=== PATIENT | female | born 1990 | race American Indian/Alaskan Native ===

== ENCOUNTER 2023-09-17 17:28 | Inpatient (IN) ==
[2023-09-17 17:59] LABS: Basophils # (auto) 0.04 K/uL (0.00-0.20); Basophils % (auto) 0.6 %; Eosinophils # (auto) 0.18 K/uL (0.00-0.50); Eosinophils % (auto) 2.7 %; Hematocrit (blood only) 36.9 % (37.0-47.0); Hemoglobin 11.9 g/dl (12.0-16.0); Immature Granulocytes # (auto) 0.01 K/uL (0.01-0.20); Immature Granulocytes % (auto) 0.2 %; Lymphocytes # (auto) 2.37 K/uL (1.20-3.40); Lymphocytes % (auto) 35.7 %; Mean Corpuscular Hemoglobin 25.2 pg (25.0-34.0); Mean Corpuscular Hgb Conc 32.2 g/dL (32.0-36.0); Mean Corpuscular Volume 78.2 fL (80.0-100.0); Mean Platelet Volume 8.8 fL (9.4-12.4); Monocytes # (auto) 0.32 K/uL (0.11-0.59); Monocytes % (auto) 4.8 %; Neutrophils # (auto) 3.72 K/uL (1.40-6.50); Platelet Count 329 K/uL (130-400); RDW Coefficient of Variation 12.8 % (11.5-14.5); RDW Standard Deviation 36.1 fL (36.4-46.3); Red Blood Count 4.72 M/uL (4.20-5.40); White Blood Count 6.64 K/ul (4.8-10.8)
[2023-09-17 18:03] LABS: Appearance Urine Cloudy (Clear); Bacteria Urine Automated 2+ (Negative); Bilirubin Urine Negative (Negative); Blood Urine Negative (Negative); Color Urine Yellow; Epithelial Cell Urine Auto >30 /lpf (0-5); Glucose Urine UA Negative (Negative); Ketones Urine Negative (Negative); Leukocyte Esterase Urine 3+ (Negative); Nitrite Urine Negative (Negative); Protein Urine Negative (Negative); Specific Gravity Urine 1.008 (1.000-1.030); Urobilinogen Urine Negative (Negative); WBC Urine Automated >30 /hpf (0-5); pH Urine 6.5 (4.5-7.5)
[2023-09-17 18:16] LABS: Albumin Globulin Ratio 1.6 (0.9-2); Albumin Level 4.7 gm/dl (3.4-5.0); BUN Creatinine Ratio 26.1 (10-20); Calcium 9.4 mg/dl (8.6-10.3); Creatinine Clr Calc Pharmacy 73.1 ml/min; Est GFR (African American) 101.5 ml/min; Est GFR (Non-African American) 87.6 ml/min; Globulin 2.9 gm/dl (2.5-4.0); Potassium 3.9 mmol/L (3.5-5.1); Total Protein 7.6 gm/dl (6.0-8.3)
[2023-09-17] MEDS: SODIUM CHLORIDE 0.9% 1,000 ML IV ONE (18:25)
[2023-09-17] MEDS: OPTIRAY 320 500ml IV ONE (18:53)
[2023-09-17 19:20] LABS: Pregnancy Test, Serum Negative (Negative)
--- NOTE | 2023-09-17 19:33 | CT Scan Report ---
ABDOMEN AND PELVIS CT WITH IV CONTRAST CT DOSE: 603.74 mGy.cm HISTORY: Acute left lower quadrant abdominal pain llq pain, urinary sxs TECHNIQUE: Multiaxial CT images of the abdomen and pelvis were performed following the IV administrat ion of 91 cc of Optiray, A dose lowering technique was utilized adhering to the principles of ALARA. COMPARISON STUDY: None. FINDINGS: Clear lung bases. No free air. Unremarkable spleen, pancreas and adrenal glands. Contracted gallbladder. Unremarkable liver with patency of the hepatic and portal veins. Unremarkable kidneys. No hydronephrosis. Circumferential urinary bladder wall thickening. Heterogenei ty of the uterus. Mixed cystic and solid mass within the midline pelvis on image 225 measures 7.5 x 6 .7 x 5.3 cm. Along the inferior margin of this lesion there is a heterogeneously enhancing solid lesi on on image 246 measuring 6.3 x 6.3 cm with adjacent nodularity of the left lower peritoneum. Additio nal cystic lesions within the right adnexa measure up to 3.6 cm. Small amount of free pelvic fluid. A jessee and IVC are unremarkable. No bowel obstruction. Mild colonic fecal retention. Small amount of fr ee pelvic fluid. Colonic diverticulosis. The appendix is mildly dilated measuring 8 mm and demonstrat es mild adjacent periappendiceal inflammatory stranding. Unremarkable soft tissues. No acute fracture. No destructive bone lesions. IMPRESSION: 1. The appendix is mildly dilated and demonstrates adjacent periappendiceal inflammation. Correlation should be made with physical exam findings and laboratory analysis to exclude acute appendicitis. 2. No bowel obstruction or pneumoperitoneum. 3. There is a complex mixed cystic and solid appearing 7.5 cm lesion within the midline pelvis with a djacent 6.3 cm soft tissue attenuating mass and tiny adjacent peritoneal nodules which is suspicious for an ovarian malignancy. Follow-up with gynecology is needed. 4. Small amount of free pelvic fluid. 5. Mild nonspecific urinary bladder wall thickening. Correlate with urinalysis to exclude cystitis. ACT 112: Positive. There are findings on this exam that require communication between the performing entity and the patient following Patient Test Result Information Act ([place] Act 112) guidelines. The above report was generated using voice recognition software. It may contain grammatical, syntax o r spelling errors. Electronically signed by: Zackery Jorgensen M.D. 09/17/2023 7:30 PM
[2023-09-17] MEDS: PIPERACILLIN/TAZOBACTAM 4.5 GM/100 ML BAG IV ONE (20:03)
--- NOTE | 2023-09-17 21:30 | Surgery Consultation ---
Date of Consultation September 17, 2023 Assessment & Plan (1) Abdominal pain, LLQ (left lower quadrant): 33-year-old woman presents with 4-day history of lower abdominal pain localized to the left. CT findings as described above. I do not believe she has appendicitis. I believe the appendix is secondarily involved with the ovarian process. She is currently on IV fluids and IV antibiotics. We will continue the IV antibiotics for now. [facility] is consulted for the presumed ovarian mass. We will continue to follow along. N.p.o. for now. History of Present Illness Reason for Consultation: ? appendicitis Requesting Physician: Vincent Zaidi MD Attending Physician: Vincent Zaidi MD History of Present Illness 33-year-old woman in previously good health and is with a 4-day history of lower abdominal pain. She denies fevers, nausea, vomiting. The pain has localized to the left. That over the past few months she has noticed bloating. She has never had surgery on her abdomen in the past. She now complains of some chills. She states that the pain is slowly worsening. She is having normal bowel movements and passing flatus. Last bowel movement was this morning. She has been eating normally. Allergies Allergy/AdvReac Type Severity Reaction Status Date / Time No Known Allergies Allergy Unverified 09/17/23 19:30 Home Medications Medication Instructions Recorded Confirmed Type No Known Home Medications 09/17/23 09/17/23 History Patient History Social History Smoking Status: Never smoker Feels Safe at Home: Yes Review of Systems Review of Systems: All systems reviewed & are unremarkable except as noted in HPI & below Physical Exam Constitutional: WD/WN, vitals as above Eyes: PERRL, conjunctivae normal, anicteric sclerae ENMT: external ear and nose normal, oropharynx normal Neck: trachea midline, no thyromegaly Respiratory: normal respiratory effort; no respiratory distress and no labored breathing Cardiovascular: Rate/Rhythm: regular rate and regular rhythm Gastrointestinal (Abdomen): Inspection/Auscultation: abdomen normal to inspection; abdomen not distended Percussion/Palpation: + abdomen tender ( LLQ greater than RLQ) and abdomen soft; no guarding and abdomen not rigid Skin: no rashes, warm and dry Psychiatric: A+Ox3, euthymic affect Results & Data Vital Signs (Past 12 Hours) Vital Signs Temp Pulse Pulse Resp BP BP Pulse Ox 09/17/23 21:00 82 15 104/65 100 09/17/23 19:00 74 16 112/68 100 09/17/23 18:35 78 09/17/23 17:35 36.5 C 88 16 110/74 99 O2 Del Method 09/17/23 21:00 Room Air 09/17/23 19:00 Room Air 09/17/23 18:35 09/17/23 17:35 Room Air Laboratory Results 09/17/23 09/17/23 Range/Units 17:47 17:40 WBC 6.64 (4.8-10.8) K/ul RBC 4.72 (4.20-5.40) M/uL Hgb 11.9 L (12.0-16.0) g/dl Hct 36.9 L (37.0-47.0) % MCV 78.2 L (80.0-100.0) fL MCH 25.2 (25.0-34.0) pg MCHC 32.2 (32.0-36.0) g/dL RDW Std Deviation 36.1 L (36.4-46.3) fL RDW Coeff of Sean 12.8 (11.5-14.5) % Plt Count 329 (130-400) K/uL MPV 8.8 L (9.4-12.4) fL Immature Gran % (Auto) 0.2 % Neut % (Auto) 56.0 % Lymph % (Auto) 35.7 % [place] % (Auto) 4.8 % Eos % (Auto) 2.7 % Baso % (Auto) 0.6 % Neut # (Auto) 3.72 (1.40-6.50) K/uL Lymph # (Auto) 2.37 (1.20-3.40) K/uL [place] # (Auto) 0.32 (0.11-0.59) K/uL Eos # (Auto) 0.18 (0.00-0.50) K/uL Baso # (Auto) 0.04 (0.00-0.20) K/uL Immature Gran # (Auto) 0.01 (0.01-0.20) K/uL Sodium 135 L (136-145) mmol/L Potassium 3.9 (3.5-5.1) mmol/L Chloride 103 (98-107) mmol/L Carbon Dioxide 25 (21-32) mmol/L Anion Gap 7 (3-11) BUN 23 (6-23) mg/dl Creatinine 0.88 (0.6-1.2) mg/dl Est Cr Clr Drug Dosing 73.1 ml/min Est GFR ( Amer) 101.5 ml/min Est GFR (Non-Af Amer) 87.6 ml/min BUN/Creatinine Ratio 26.1 H (10-20) Glucose 90 (70-99(Fasting)) mg/dl Calcium 9.4 (8.6-10.3) mg/dl Total Bilirubin 1.0 (0.2-1.0) mg/dl AST 18 (13-39) U/L ALT 13 (7-52) U/L Alkaline Phosphatase 44 (34-104) U/L Total Protein 7.6 (6.0-8.3) gm/dl Albumin 4.7 (3.4-5.0) gm/dl Globulin 2.9 (2.5-4.0) gm/dl Albumin/Globulin Ratio 1.6 (0.9-2) Lipase 35 (11-82) U/L HCG, Qual Negative (Negative) Urine Color Yellow Urine Appearance Cloudy A (Clear) Urine pH 6.5 (4.5-7.5) Ur Specific [place] 1.008 (1.000-1.030) Urine Protein Negative (Negative) Urine Glucose (UA) Negative (Negative) Urine Ketones Negative (Negative) Urine Blood Negative (Negative) Urine Nitrite Negative (Negative) Urine Bilirubin Negative (Negative) Urine Urobilinogen Negative (Negative) Ur Leukocyte Esterase 3+ H (Negative) Urine WBC (Auto) >30 H (0-5) /hpf Urine RBC (Auto) 5-10 H (0-4) /hpf U Hyaline Cast (Auto) 1-5 (0-5) /lpf U Epithel Cells (Auto) >30 H (0-5) /lpf Urine Bacteria (Auto) 2+ H (Negative) Diagnostic Findings ABDOMEN AND PELVIS CT WITH IV CONTRAST CT DOSE: 603.74 mGy.cm HISTORY: Acute left lower quadrant abdominal pain llq pain, urinary sxs TECHNIQUE: Multiaxial CT images of the abdomen and pelvis were performed following the IV administration of 91 cc of Optiray, A dose lowering technique was utilized adhering to the principles of ALARA. COMPARISON STUDY: None. FINDINGS: Clear lung bases. No free air. Unremarkable spleen, pancreas and adrenal glands. Contracted gallbladder. Unremarkable liver with patency of the hepatic and portal veins. Unremarkable kidneys. No hydronephrosis. Circumferential urinary bladder wall thickening. Heterogeneity of the uterus. Mixed cystic and solid mass within the midline pelvis on image 225 measures 7.5 x 6.7 x 5.3 cm. Along the inferior margin of this lesion there is a heterogeneously enhancing solid lesion on image 246 measuring 6.3 x 6.3 cm with adjacent nodularity of the left lower peritoneum. Additional cystic lesions within the right adnexa measure up to 3.6 cm. Small amount of free pelvic fluid. Aorta and IVC are unremarkable. No bowel obstruction. Mild colonic fecal retention. Small amount of free pelvic fluid. Colonic diverticulosis. The appendix is mildly dilated measuring 8 mm and demonstrates mild adjacent periappendiceal inflammatory stranding. Unremarkable soft tissues. No acute fracture. No destructive bone lesions. IMPRESSION: 1. The appendix is mildly dilated and demonstrates adjacent periappendiceal inflammation. Correlation should be made with physical exam findings and laboratory analysis to exclude acute appendicitis. 2. No bowel obstruction or pneumoperitoneum. 3. There is a complex mixed cystic and solid appearing 7.5 cm lesion within the midline pelvis with adjacent 6.3 cm soft tissue attenuating mass and tiny adjacent peritoneal nodules which is suspicious for an ovarian malignancy. Follow-up with gynecology is needed. 4. Small amount of free pelvic fluid. 5. Mild nonspecific urinary bladder wall thickening. Correlate with urinalysis to exclude cystitis. ACT 112: Positive. There are findings on this exam that require communication between the performing entity and the patient following Patient Test Result Information Act ([place] Act 112) guidelines. The above report was generated using voice recognition software. It may contain grammatical, syntax or spelling errors.
--- NOTE | 2023-09-17 21:43 | History & Physical Report ---
Date of Service September 17, 2023 Assessment & Plan (1) Abdominal pain, LLQ (left lower quadrant): Plan: 33-year-old female with no significant past medical history comes because of left lower quad abdominal pain going on for last few days and feeling hot and cold. Denies any fevers. No nausea /vomiting. Normal bowel and bladder movements. No chest pain or shortness of breath. No cough. No headache. No back pain. No runny nose or sore throat .Appetite is okay. Currently resting comfortably and hemodynamically stable. Abdominal pain UTI CT CT abdomen pelvis showing possible appendicitis and also complex mixed cystic and solid appearing 7.5 cm lesion in the midline pelvis and with adjacent 6.3 cm soft tissue attenuating mass and tiny adjacent peritoneal nodules which is suspicious for an ovarian malignancy. Possible appendicitis Surgery notified Patient pain is more in the left lower quadrant Conservative management with IV Zosyn for now Surgery consult Ovarian mass Will consult [facility] and oncology in a.m. for further recommendations Will check tumor markers UTI On Zosyn Will follow cultures DVT prophylaxis SCDs for now Disposition Medical floor Full code History of Present Illness Chief Complaint: Abdominal pain Primary Care Provider: NO PCP 33-year-old female with no significant past medical history comes because of left lower quad abdominal pain going on for last few days and feeling hot and cold. Denies any fevers. No nausea /vomiting. Normal bowel and bladder movements. No chest pain or shortness of breath. No cough. No headache. No back pain. No runny nose or sore throat .Appetite is okay. Currently resting comfortably and hemodynamically stable. Past medical history none Past surgical history none Social history. No smoking. Alcohol social drinking Family history mother had oophorectomy Allergies Allergy/AdvReac Type Severity Reaction Status Date / Time No Known Allergies Allergy Unverified 09/17/23 19:30 Home Medications Medication Instructions Recorded Confirmed Type No Known Home Medications 09/17/23 09/17/23 History Past Med/Surg History Social History Smoking Status: Never smoker Hx Alcohol Use: No Hx Substance Use: No Communication Ability: Effective Beliefs That Will Affect Care: None Current Living Situation: Spouse Feels Safe at Home: Yes Safety Concerns: Feels Safe At This Time Assistive Devices: None Review of Systems Review of Systems: All systems reviewed & are unremarkable except as noted in HPI & below Physical Exam Physical Exam: General- Not in distress Head- atraumatic Eyes- PERRL. ENT- oropharynx clear Neck- supple, Lungs- clear to auscultation no wheezing or crackles. Heart- regular rhythm; no murmur, no gallop. Abdomen- normal bowel sounds, soft, tenderness in LLQ, no distension. Extremities- no pretibial edema, no erythema seen. Neuro- alert, oriented PERRL, no facial palsy; no dysarthria; obeys commands. Results & Data Results & Data Vital Signs (Past 12 Hours) Vital Signs Temp Pulse Pulse Resp BP BP Pulse Ox 09/17/23 19:00 74 16 112/68 100 09/17/23 18:35 78 09/17/23 17:35 36.5 C 88 16 110/74 99 O2 Del Method 09/17/23 19:00 Room Air 09/17/23 18:35 09/17/23 17:35 Room Air Diagnostic Findings Laboratory Results WBC 6.64 K/ul (4.8-10.8) 09/17/23 17:40 RBC 4.72 M/uL (4.20-5.40) 09/17/23 17:40 Hgb 11.9 g/dl (12.0-16.0) L 09/17/23 17:40 Hct 36.9 % (37.0-47.0) L 09/17/23 17:40 MCV 78.2 fL (80.0-100.0) L 09/17/23 17:40 MCH 25.2 pg (25.0-34.0) 09/17/23 17:40 MCHC 32.2 g/dL (32.0-36.0) 09/17/23 17:40 RDW Std Deviation 36.1 fL (36.4-46.3) L 09/17/23 17:40 RDW Coeff of Sean 12.8 % (11.5-14.5) 09/17/23 17:40 Plt Count 329 K/uL (130-400) 09/17/23 17:40 MPV 8.8 fL (9.4-12.4) L 09/17/23 17:40 Immature Gran % (Auto) 0.2 % 09/17/23 17:40 Neut % (Auto) 56.0 % 09/17/23 17:40 Lymph % (Auto) 35.7 % 09/17/23 17:40 [place] % (Auto) 4.8 % 09/17/23 17:40 Eos % (Auto) 2.7 % 09/17/23 17:40 Baso % (Auto) 0.6 % 09/17/23 17:40 Neut # (Auto) 3.72 K/uL (1.40-6.50) 09/17/23 17:40 Lymph # (Auto) 2.37 K/uL (1.20-3.40) 09/17/23 17:40 [place] # (Auto) 0.32 K/uL (0.11-0.59) 09/17/23 17:40 Eos # (Auto) 0.18 K/uL (0.00-0.50) 09/17/23 17:40 Baso # (Auto) 0.04 K/uL (0.00-0.20) 09/17/23 17:40 Immature Gran # (Auto) 0.01 K/uL (0.01-0.20) 09/17/23 17:40 Sodium 135 mmol/L (136-145) L 09/17/23 17:40 Potassium 3.9 mmol/L (3.5-5.1) 09/17/23 17:40 Chloride 103 mmol/L (98-107) 09/17/23 17:40 Carbon Dioxide 25 mmol/L (21-32) 09/17/23 17:40 Anion Gap 7 (3-11) 09/17/23 17:40 BUN 23 mg/dl (6-23) 09/17/23 17:40 Creatinine 0.88 mg/dl (0.6-1.2) 09/17/23 17:40 Est Cr Clr Drug Dosing 73.1 ml/min 09/17/23 17:40 Est GFR ( Amer) 101.5 ml/min 09/17/23 17:40 Est GFR (Non-Af Amer) 87.6 ml/min 09/17/23 17:40 BUN/Creatinine Ratio 26.1 (10-20) H 09/17/23 17:40 Glucose 90 mg/dl (70-99(Fasting)) 09/17/23 17:40 Calcium 9.4 mg/dl (8.6-10.3) 09/17/23 17:40 Total Bilirubin 1.0 mg/dl (0.2-1.0) 09/17/23 17:40 AST 18 U/L (13-39) 09/17/23 17:40 ALT 13 U/L (7-52) 09/17/23 17:40 Alkaline Phosphatase 44 U/L (34-104) 09/17/23 17:40 Total Protein 7.6 gm/dl (6.0-8.3) 09/17/23 17:40 Albumin 4.7 gm/dl (3.4-5.0) 09/17/23 17:40 Globulin 2.9 gm/dl (2.5-4.0) 09/17/23 17:40 Albumin/Globulin Ratio 1.6 (0.9-2) 09/17/23 17:40 Lipase 35 U/L (11-82) 09/17/23 17:40 HCG, Qual Negative (Negative) 09/17/23 17:40 Urine Color Yellow 09/17/23 17:47 Urine Appearance Cloudy (Clear) A 09/17/23 17:47 Urine pH 6.5 (4.5-7.5) 09/17/23 17:47 Ur Specific [place] 1.008 (1.000-1.030) 09/17/23 17:47 Urine Protein Negative (Negative) 09/17/23 17:47 Urine Glucose (UA) Negative (Negative) 09/17/23 17:47 Urine Ketones Negative (Negative) 09/17/23 17:47 Urine Blood Negative (Negative) 09/17/23 17:47 Urine Nitrite Negative (Negative) 09/17/23 17:47 Urine Bilirubin Negative (Negative) 09/17/23 17:47 Urine Urobilinogen Negative (Negative) 09/17/23 17:47 Ur Leukocyte Esterase 3+ (Negative) H 09/17/23 17:47 Urine WBC (Auto) >30 /hpf (0-5) H 09/17/23 17:47 Urine RBC (Auto) 5-10 /hpf (0-4) H 09/17/23 17:47 U Hyaline Cast (Auto) 1-5 /lpf (0-5) 09/17/23 17:47 U Epithel Cells (Auto) >30 /lpf (0-5) H 09/17/23 17:47 Urine Bacteria (Auto) 2+ (Negative) H 09/17/23 17:47 Impressions Abdomen/Pelvis CT 09/17/23 18:[address] WITH IV CONTRAST CT DOSE: 603.74 mGy.cm HISTORY: Acute left lower quadrant abdominal pain llq pain, urinary sxs TECHNIQUE: Multiaxial CT images of the abdomen and pelvis were performed following the IV administration of 91 cc of Optiray, A dose lowering technique was utilized adhering to the principles of ALARA. COMPARISON STUDY: None. FINDINGS: Clear lung bases. No free air. Unremarkable spleen, pancreas and adrenal glands. Contracted gallbladder. Unremarkable liver with patency of the hepatic and portal veins. Unremarkable kidneys. No hydronephrosis. Circumferential urinary bladder wall thickening. Heterogeneity of the uterus. Mixed cystic and solid mass within the midline pelvis on image 225 measures 7.5 x 6.7 x 5.3 cm. Along the inferior margin of this lesion there is a heterogeneously enhancing solid lesion on image 246 measuring 6.3 x 6.3 cm with adjacent nodularity of the left lower peritoneum. Additional cystic lesions within the right adnexa measure up to 3.6 cm. Small amount of free pelvic fluid. Aorta and IVC are unremarkable. No bowel obstruction. Mild colonic fecal retention. Small amount of free pelvic fluid. Colonic diverticulosis. The appendix is mildly dilated measuring 8 mm and demonstrates mild adjacent periappendiceal inflammatory stranding. Unremarkable soft tissues. No acute fracture. No destructive bone lesions. IMPRESSION: 1. The appendix is mildly dilated and demonstrates adjacent periappendiceal in flammation. Correlation should be made with physical exam findings and laboratory analysis to exclude acute appendicitis. 2. No bowel obstruction or pneumoperitoneum. 3. There is a complex mixed cystic and solid appearing 7.5 cm lesion within the midline pelvis with adjacent 6.3 cm soft tissue attenuating mass and tiny adjacent peritoneal nodules which is suspicious for an ovarian malignancy. Follow-up with gynecology is needed. 4. Small amount of free pelvic fluid. 5. Mild nonspecific urinary bladder wall thickening. Correlate with urinalysis to exclude cystitis. ACT 112: Positive. There are findings on this exam that require communication between the performing entity and the patient following Patient Test Result Information Act ([place] Act 112) guidelines. The above report was generated using voice recognition software. It may contain grammatical, syntax or spelling errors. Electronically signed by: Zackery Jorgensen M.D. 09/17/2023 7:30 PM Code Status & VTE Plan VTE Prophylaxis Plan VTE Prophylaxis will be ordered: Yes
--- NOTE | 2023-09-17 22:19 | Emergency Department Note ---
ED Provider Note History of Present Illness Chief Complaint: Abdominal Pain Stated Complaint: LOWER ABDOMINAL PAIN/3 DAYS, SOMETIMES SHARP Time Seen by Provider: 09/17/23 17:55 Source: patient Mode of arrival: ambulatory Limitations: no limitations This patient is a 33-year-old female who presents to the emergency department for evaluation of some lower abdominal pain. She reports that she has noticed some pain over the past 3 to 4 days. At first the pain was more mild and generalized but she is now having occasional sharp pains in the left lower quadrant. She states that when she urinates the pain becomes more sharp, but denies dysuria or other urinary symptoms. She does report a history of kidney stones but states her last stone was about 10 years ago and she cannot remember if it was similar to this. She denies any associated nausea/vomiting, fever/chills or change in bowel movements. Last menstrual period was about 2 weeks ago and was regular for her. Denies chance of . Denies any abnormal vaginal discharge. She rates her overall discomfort a 4/10. Home Medications Medication Instructions Recorded Confirmed Type No Known Home Medications 09/17/23 09/17/23 History Allergies Allergy/AdvReac Type Severity Reaction Status Date / Time No Known Allergies Allergy Unverified 09/17/23 19:30 Past Med/Surg History Social History Smoking Status: Never smoker Hx Alcohol Use: No Hx Substance Use: No Communication Ability: Effective Beliefs That Will Affect Care: None Current Living Situation: Spouse Feels Safe at Home: Yes Safety Concerns: Feels Safe At This Time Assistive Devices: None Physical Exam Vital Signs Vital Signs - 24 hr 09/17/23 17:35 09/17/23 18:35 09/17/23 19:00 Temperature 36.5 C Temperature Source Oral Pulse Rate 88 78 Pulse Rate [Apical] 74 Respiratory Rate 16 16 Blood Pressure 110/74 Blood Pressure [Left Arm] 112/68 Blood Pressure Mean 86 Blood Pressure Mean [Left Arm] 82 Pulse Oximetry 99 100 Oxygen Delivery Method Room Air Room Air Sepsis Recent Fever Within 48 Hours No Sepsis New/Unexplained Change in Mental Status No Sepsis Action Taken by Nursing No Action Required VITALS: Vitals are noted on the nurse's note and reviewed by myself. GENERAL: This is a 33-year-old female, in no acute distress, well-developed well-nourished. MOUTH: Mucous membranes moist. HEART: Regular rate and rhythm without murmurs gallops or rubs. LUNGS: Clear to auscultation bilaterally without wheezes, rales or rhonchi. ABDOMEN: Positive bowel sounds x 4. Abdomen soft, moderate tenderness in the left lower quadrant with mild tenderness across the lower abdomen. No guarding or rebound tenderness. NEURO: Patient was alert and oriented to person place and time. Course Administered Medications Discontinued Medications Sodium Chloride (Nss) 1,000 mls @ 999 mls/hr IV .[id number] ONE Stop: 09/17/23 19:24 Last Infusion: 09/17/23 20:58 Dose: Infused Documented By: Admin: 09/17/23 18:25 Dose: 999 mls/hr Documented By: MERON Piperacillin Sod/Tazobactam Sod (Zosyn) 4.5 gm in 100 mls @ 200 mls/hr IV NOW ONE Stop: 09/17/23 20:04 Last Infusion: 09/17/23 20:58 Dose: Infused Documented By: Admin: 09/17/23 20:03 Dose: 200 mls/hr Documented By: LU Sodium Chloride (Nss) 1,000 mls @ 75 mls/hr IV .[id number] Stop: 10/17/23 22:35 Last Infusion: 09/17/23 23:57 Dose: Infused Documented By: Infusion: 09/17/23 23:56 Dose: 0 mls/hr Documented By: Admin: 09/17/23 22:54 Dose: 75 mls/hr Documented By: DEIDRE Ioversol (Optiray 320 500ml) 91 ml IV ONCE ONE Stop: 09/17/23 18:54 Last Admin: 09/17/23 18:53 Dose: 91 ml Documented By: KARTIK Medical Decision Making Differential Diagnosis Appendicitis, ovarian cyst, ovarian torsion, ectopic , TOA, PID, infections, diverticulitis, UTI, obstruction, mesenteric ischemia, aortic pathology, inflammatory bowel disease, renal colic, PUD, pancreatitis, biliary pathology, hernia, volvulus, constipation, as well as other pathologies. Home Medications was personally reviewed by me Laboratory Data Attestation: I reviewed the patient's lab results. 09/17/23 17:40 09/17/23 17:40 Lab Results 09/17/23 09/17/23 Range/Units 17:40 17:47 WBC 6.64 (4.8-10.8) K/ul RBC 4.72 (4.20-5.40) M/uL Hgb 11.9 L (12.0-16.0) g/dl Hct 36.9 L (37.0-47.0) % MCV 78.2 L (80.0-100.0) fL MCH 25.2 (25.0-34.0) pg MCHC 32.2 (32.0-36.0) g/dL RDW Std Deviation 36.1 L (36.4-46.3) fL RDW Coeff of Sean 12.8 (11.5-14.5) % Plt Count 329 (130-400) K/uL MPV 8.8 L (9.4-12.4) fL Immature Gran % (Auto) 0.2 % Neut % (Auto) 56.0 % Lymph % (Auto) 35.7 % [place] % (Auto) 4.8 % Eos % (Auto) 2.7 % Baso % (Auto) 0.6 % Neut # (Auto) 3.72 (1.40-6.50) K/uL Lymph # (Auto) 2.37 (1.20-3.40) K/uL [place] # (Auto) 0.32 (0.11-0.59) K/uL Eos # (Auto) 0.18 (0.00-0.50) K/uL Baso # (Auto) 0.04 (0.00-0.20) K/uL Immature Gran # (Auto) 0.01 (0.01-0.20) K/uL Sodium 135 L (136-145) mmol/L Potassium 3.9 (3.5-5.1) mmol/L Chloride 103 (98-107) mmol/L Carbon Dioxide 25 (21-32) mmol/L Anion Gap 7 (3-11) BUN 23 (6-23) mg/dl Creatinine 0.88 (0.6-1.2) mg/dl Est Cr Clr Drug Dosing 73.1 ml/min Est GFR ( Amer) 101.5 ml/min Est GFR (Non-Af Amer) 87.6 ml/min BUN/Creatinine Ratio 26.1 H (10-20) Glucose 90 (70-99(Fasting)) mg/dl Calcium 9.4 (8.6-10.3) mg/dl Total Bilirubin 1.0 (0.2-1.0) mg/dl AST 18 (13-39) U/L ALT 13 (7-52) U/L Alkaline Phosphatase 44 (34-104) U/L Total Protein 7.6 (6.0-8.3) gm/dl Albumin 4.7 (3.4-5.0) gm/dl Globulin 2.9 (2.5-4.0) gm/dl Albumin/Globulin Ratio 1.6 (0.9-2) Lipase 35 (11-82) U/L HCG, Qual Negative (Negative) Urine Color Yellow Urine Appearance Cloudy A (Clear) Urine pH 6.5 (4.5-7.5) Ur Specific [place] 1.008 (1.000-1.030) Urine Protein Negative (Negative) Urine Glucose (UA) Negative (Negative) Urine Ketones Negative (Negative) Urine Blood Negative (Negative) Urine Nitrite Negative (Negative) Urine Bilirubin Negative (Negative) Urine Urobilinogen Negative (Negative) Ur Leukocyte Esterase 3+ H (Negative) Urine WBC (Auto) >30 H (0-5) /hpf Urine RBC (Auto) 5-10 H (0-4) /hpf U Hyaline Cast (Auto) 1-5 (0-5) /lpf U Epithel Cells (Auto) >30 H (0-5) /lpf Urine Bacteria (Auto) 2+ H (Negative) Imaging Data Attestation: I personally reviewed and interpreted this imaging study as follows: Radiologist's Impression: Abdomen/Pelvis CT 09/17/23 18:[address] WITH IV CONTRAST CT DOSE: 603.74 mGy.cm HISTORY: Acute left lower quadrant abdominal pain llq pain, urinary sxs TECHNIQUE: Multiaxial CT images of the abdomen and pelvis were performed following the IV administration of 91 cc of Optiray, A dose lowering technique was utilized adhering to the principles of ALARA. COMPARISON STUDY: None. FINDINGS: Clear lung bases. No free air. Unremarkable spleen, pancreas and adrenal glands. Contracted gallbladder. Unremarkable liver with patency of the hepatic and portal veins. Unremarkable kidneys. No hydronephrosis. Circumferential urinary bladder wall thickening. Heterogeneity of the uterus. Mixed cystic and solid mass within the midline pelvis on image 225 measures 7.5 x 6.7 x 5.3 cm. Along the inferior margin of this lesion there is a heterogeneously enhancing solid lesion on image 246 measuring 6.3 x 6.3 cm with adjacent nodularity of the left lower peritoneum. Additional cystic lesions within the right adnexa measure up to 3.6 cm. Small amount of free pelvic fluid. Aorta and IVC are unremarkable. No bowel obstruction. Mild colonic fecal retention. Small amount of free pelvic fluid. Colonic diverticulosis. The appendix is mildly dilated measuring 8 mm and demonstrates mild adjacent periappendiceal inflammatory stranding. Unremarkable soft tissues. No acute fracture. No destructive bone lesions. IMPRESSION: 1. The appendix is mildly dilated and demonstrates adjacent periappendiceal inflammation. Correlation should be made with physical exam findings and laboratory analysis to exclude acute appendicitis. 2. No bowel obstruction or pneumoperitoneum. 3. There is a complex mixed cystic and solid appearing 7.5 cm lesion within the midline pelvis with adjacent 6.3 cm soft tissue attenuating mass and tiny adjacent peritoneal nodules which is suspicious for an ovarian malignancy. Follow-up with gynecology is needed. 4. Small amount of free pelvic fluid. 5. Mild nonspecific urinary bladder wall thickening. Correlate with urinalysis to exclude cystitis. ACT 112: Positive. There are findings on this exam that require communication between the performing entity and the patient following Patient Test Result Information Act ([place] Act 112) guidelines. The above report was generated using voice recognition software. It may contain grammatical, syntax or spelling errors. Electronically signed by: Zackery Jorgensen M.D. 09/17/2023 7:30 PM [facility] Narrative This patient is a 33-year-old female who presents to the emergency department for evaluation of left lower quadrant abdominal pain. Her labs revealed no leukocytosis, mild anemia and no significant electrolyte abnormalities. Serum test was negative. Urinalysis was suggestive of infection, with 3+ leukocyte esterase, greater than 30 white blood cells and 2+ bacteria. CT scan with IV contrast was performed. This was reviewed by radiology and shows multiple abnormalities. Patient was found to have a lesion in the pelvis suspicious for ovarian malignancy. In addition to this, the appendix is dilated with some periappendiceal inflammation, which could indicate appendicitis although her clinical presentation does not seem to be quite consistent with this. She does have some bladder wall thickening consistent with cystitis. I discussed with general surgery, Dr. Hinson who evaluated the patient. He recommended IV antibiotics at this time as this may not represent acute appendicitis, but could be reactive from the pelvic mass. Surgery is not recommended at this time. I spoke with Dr. Fuentes from [facility] who stated that they can consult on the patient regarding the pelvic mass, though she will need gynecology/oncology follow-up. He was also agreeable to admission. Case was then discussed with the [facility] hospitalist, Dr. Allen who agreed to evaluate the patient for admission and care. She was given a dose of IV Zosyn and 1 L of IV normal saline. She declined analgesics while in the emergency department. Impression Abnormal abdominal CT scan, Acute left lower quadrant pain, Urinary tract infection Discharge Plan Visit Data Chief Complaint: Abdominal Pain Stated Complaint: LOWER ABDOMINAL PAIN/3 DAYS, SOMETIMES SHARP ED Provider: Vincent Zaidi ED Midlevel Provider: Tanya Sky Discharge Problem: Abnormal abdominal CT scan, Acute left lower quadrant pain, Urinary tract infection Patient Disposition: Admitted As Inpatient Discharge Instructions Interventions: ED Discharge Assessment Last Done: 09/17/23 22:20
[2023-09-17] MEDS ORDERED: ACETAMINOPHEN 325 MG TAB PO PRN (22:36)
[2023-09-17] MEDS ORDERED: MoRPHine SULFATE 2 MG/ML CARP IV PRN (22:36)
[2023-09-17] MEDS: SODIUM CHLORIDE 0.9% 1,000 ML IV SCH (22:54)
[2023-09-18] MEDS: PIPERACILLIN/TAZOBACTAM 4.5 GM in DEXTROSE 5% MINI-B 100 ML IV SCH (02:11)
--- NOTE | 2023-09-18 09:01 | Surgery Progress Note ---
Date of Service September 18, 2023 Assessment & Plan (1) Abdominal pain, LLQ (left lower quadrant): Plan: 33-year-old woman presents with 4-day history of lower abdominal pain localized to the left. CT findings as described above. Believe the appendix is secondaril y involved with the ovarian process. SENSORY SCIENTIST is consulted for the presumed ovarian mass. Plan: Continue antibiotics Await OBGYN eval continue diet Dr. Hinson has seen and examined patient, agrees with above. Admission and Anticipated Discharge Date Admission Date: September 17, 2023 Supervising Physician Co-Signing Physician Notes I have seen and examined the patient and agree with the above assessment and plan. Her pain is significantly improved. She has no tenderness to deep palpation in the right lower quadrant. She has no rebound or peritoneal signs. I do not believe she has appendicitis. We are awaiting full [facility] PH[facility]ICIAN workup. Will continue to follow. Subjective no right lower sided abdominal pain no n,v no fevers or chills still having LLQ abdominal pain Physical Exam Constitutional: WD/WN, vitals as above no acute distress and not ill appearing Respiratory: normal respiratory effort; no respiratory distress Gastrointestinal (Abdomen): Inspection/Auscultation: abdomen normal to inspection; abdomen not distended Percussion/Palpation: + abdomen tender (LLQ) and abdomen soft; no guarding and abdomen not rigid Skin: no rashes, warm and dry Psychiatric: A+Ox3, euthymic affect Results & Data Vital Signs (Past 12 Hours) Vital Signs Temp Pulse Pulse Resp BP BP Pulse Ox 09/18/23 07:44 36.7 C 70 20 96/60 L 98 09/17/23 22:37 36.7 C 72 17 108/70 99 09/17/23 21:00 82 15 104/65 100 O2 Del Method 09/18/23 07:44 Room Air 09/17/23 22:37 Room Air 09/17/23 21:00 Room Air Laboratory Results 09/18/23 09/17/23 09/17/23 Range/Units 05:23 17:47 17:40 WBC 6.64 (4.8-10.8) K/ul RBC 4.72 (4.20-5.40) M/uL Hgb 11.9 L (12.0-16.0) g/dl Hct 36.9 L (37.0-47.0) % MCV 78.2 L (80.0-100.0) fL MCH 25.2 (25.0-34.0) pg MCHC 32.2 (32.0-36.0) g/dL RDW Std Deviation 36.1 L (36.4-46.3) fL RDW Coeff of Sean 12.8 (11.5-14.5) % Plt Count 329 (130-400) K/uL MPV 8.8 L (9.4-12.4) fL Immature Gran % (Auto) 0.2 % Neut % (Auto) 56.0 % Lymph % (Auto) 35.7 % [place] % (Auto) 4.8 % Eos % (Auto) 2.7 % Baso % (Auto) 0.6 % Neut # (Auto) 3.72 (1.40-6.50) K/uL Lymph # (Auto) 2.37 (1.20-3.40) K/uL [place] # (Auto) 0.32 (0.11-0.59) K/uL Eos # (Auto) 0.18 (0.00-0.50) K/uL Baso # (Auto) 0.04 (0.00-0.20) K/uL Immature Gran # (Auto) 0.01 (0.01-0.20) K/uL Sodium 135 L (136-145) mmol/L Potassium 3.9 (3.5-5.1) mmol/L Chloride 103 (98-107) mmol/L Carbon Dioxide 25 (21-32) mmol/L Anion Gap 7 (3-11) BUN 23 (6-23) mg/dl Creatinine 0.88 (0.6-1.2) mg/dl Est Cr Clr Drug Dosing 73.1 ml/min Est GFR ( Amer) 101.5 ml/min Est GFR (Non-Af Amer) 87.6 ml/min BUN/Creatinine Ratio 26.1 H (10-20) Glucose 90 (70-99(Fasting)) mg/dl Calcium 9.4 (8.6-10.3) mg/dl Total Bilirubin 1.0 (0.2-1.0) mg/dl AST 18 (13-39) U/L ALT 13 (7-52) U/L Alkaline Phosphatase 44 (34-104) U/L Total Protein 7.6 (6.0-8.3) gm/dl Albumin 4.7 (3.4-5.0) gm/dl Globulin 2.9 (2.5-4.0) gm/dl Albumin/Globulin Ratio 1.6 (0.9-2) Lipase 35 (11-82) U/L Carcinoembryonic Ag 0.3 (0-2.5) ng/ml [place] 125 Antigen Pending HCG, Qual Negative (Negative) Urine Color Yellow Urine Appearance Cloudy A (Clear) Urine pH 6.5 (4.5-7.5) Ur Specific [place] 1.008 (1.000-1.030) Urine Protein Negative (Negative) Urine Glucose (UA) Negative (Negative) Urine Ketones Negative (Negative) Urine Blood Negative (Negative) Urine Nitrite Negative (Negative) Urine Bilirubin Negative (Negative) Urine Urobilinogen Negative (Negative) Ur Leukocyte Esterase 3+ H (Negative) Urine WBC (Auto) >30 H (0-5) /hpf Urine RBC (Auto) 5-10 H (0-4) /hpf U Hyaline Cast (Auto) 1-5 (0-5) /lpf U Epithel Cells (Auto) >30 H (0-5) /lpf Urine Bacteria (Auto) 2+ H (Negative)
--- NOTE | 2023-09-18 11:11 | OB/GYN Consultation ---
Date of Consultation September 18, 2023 Assessment & Plan (1) Ovarian mass, left: Ca 125 is pending. CEA and lipase are negative. doubt torsion will need follow up with service cleaner oncologist as outpatient History of Present Illness Reason for Consultation: ovarian mass on left with pain Requesting Physician: Ephraim Leonard MD Attending Physician: Ephraim Leonard MD History of Present Illness 33 F P1001 LMP around 08/30/23 for 2 days seen in ER for pain starting Mon. or of last week rating this a 4-5/10. Ther is no n/v/d/c. She has tolerated a liquid diet while in the hospital. Now her pain is 0.5/10 and she is sitting comfortably in bed reading and in no visible distress. She had one vaginal several years ago without complications. Not currently on control and is sexually active. 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 Her periods are normal lasting 2 days with minimal pain/cramps/bleeding. No history of ovarian or service cleaner problems. No history of infertility. Allergies Allergy/AdvReac Type Severity Reaction Status Date / Time No Known Allergies Allergy Unverified 09/17/23 19:30 Home Medications Medication Instructions Recorded Confirmed Type No Known Home Medications 09/17/23 09/17/23 History Patient History Social History Smoking Status: Never smoker Hx Alcohol Use: No Hx Substance Use: No Communication Ability: Effective Beliefs That Will Affect Care: None Current Living Situation: Spouse Feels Safe at Home: Yes Safety Concerns: Feels Safe At This Time Assistive Devices: None Review of Systems Review of Systems: All systems reviewed & are unremarkable except as noted in HPI & below Physical Exam Constitutional: WD/WN, vitals as above Eyes: PERRL, conjunctivae normal, anicteric sclerae Respiratory: normal respiratory effort, lungs clear to auscultation Gastrointestinal (Abdomen): Inspection/Auscultation: abdomen normal to inspection no rebound, guarding or pain with palpation. minimal discomfort to deep palpation LLQ only. No CVA tenderness bilaterally. Skin: no rashes, warm and dry Neurologic: patellar DTR's 2+ bilat, sensation intact Psychiatric: A+Ox3, euthymic affect Results & Data Vital Signs (Past 12 Hours) Vital Signs Temp Pulse Resp BP Pulse Ox O2 Del Method 03/04/24 07:44 36.7 C 70 20 96/60 L 98 Room Air Laboratory Results Laboratory Results - last 72 hr 09/17/23 09/17/23 09/18/23 17:40 17:47 05:23 WBC 6.64 RBC 4.72 Hgb 11.9 L Hct 36.9 L MCV 78.2 L MCH 25.2 MCHC 32.2 RDW Std Deviation 36.1 L RDW Coeff of [place] 12.8 Plt Count 329 MPV 8.8 L Immature Gran % (Auto) 0.2 Neut % (Auto) 56.0 Lymph % (Auto) 35.7 [place] % (Auto) 4.8 Eos % (Auto) 2.7 Baso % (Auto) 0.6 Neut # (Auto) 3.72 Lymph # (Auto) 2.37 [place] # (Auto) 0.32 Eos # (Auto) 0.18 Baso # (Auto) 0.04 Immature Gran # (Auto) 0.01 Sodium 135 L Potassium 3.9 Chloride 103 Carbon Dioxide 25 Anion Gap 7 BUN 23 Creatinine 0.88 Est Cr Clr Drug Dosing 73.1 Est GFR ( Amer) 101.5 Est GFR (Non-Af Amer) 87.6 BUN/Creatinine Ratio 26.1 H Glucose 90 Calcium 9.4 Total Bilirubin 1.0 AST 18 ALT 13 Alkaline Phosphatase 44 Total Protein 7.6 Albumin 4.7 Globulin 2.9 Albumin/Globulin Ratio 1.6 Lipase 35 Carcinoembryonic Ag 0.3 HCG, Qual Negative Urine Color Yellow Urine Appearance Cloudy A Urine pH 6.5 Ur Specific [place] 1.008 Urine Protein Negative Urine Glucose (UA) Negative Urine Ketones Negative Urine Blood Negative Urine Nitrite Negative Urine Bilirubin Negative Urine Urobilinogen Negative Ur Leukocyte Esterase 3+ H Urine WBC (Auto) >30 H Urine RBC (Auto) 5-10 H U Hyaline Cast (Auto) 1-5 U Epithel Cells (Auto) >30 H Urine Bacteria (Auto) 2+ H Diagnostic Findings CT scan reveals small free fluid in pelvis 7.5 x 6.7 x 5.3 cm. mixed cystic/solid left ovarian mass within midline pelvis with adjacent 6.3 x 6.3 cm. mass. Some peritoneal lesions noted. This was interpreted as possible malignancy
--- NOTE | 2023-09-18 13:56 | Oncology Consultation ---
Date of Consultation September 18, 2023 Assessment & Plan (1) Pelvic mass: Recommend evaluation by gynecological oncology. Once we have a tissue diagnosis medical oncology will a further recommendation. Counseled the patient that we may be dealing with something entirely benign such as a cystadenoma or a teratoma. Unless and until we have a biopsy-proven diagnosis the patient will not qualify for chemotherapy. Plan Medical oncology will continue to follow the patient and make appropriate recommendations History of Present Illness Reason for Consultation: Pelvic mass, 7.5 cm Attending Physician: Ephraim Leonard MD History of Present Illness The patient is a very pleasant 33-year-old woman who presented to the hospital with left lower quadrant abdominal pain. In the ER the patient had a CT scan of the abdomen performed on 09/17/2023 which revealed mildly dilated appendix, periappendiceal inflammation. There was no bowel obstruction or pneumoperitoneum. There was a complex mixed cystic and solid mass 7.5 cm lesion within the midline pelvis with adjacent 6.5 cm tissue attenuating mass and tiny peritoneal nodules. Medical oncology has been consulted to assist in management of this patient with a pelvic mass. Allergies Allergy/AdvReac Type Severity Reaction Status Date / Time No Known Allergies Allergy Unverified 09/17/23 19:30 Home Medications Medication Instructions Recorded Confirmed Type No Known Home Medications 09/17/23 09/17/23 History Patient History Social History Smoking Status: Never smoker Hx Alcohol Use: No Hx Substance Use: No Communication Ability: Effective Beliefs That Will Affect Care: None Current Living Situation: Spouse Feels Safe at Home: Yes Safety Concerns: Feels Safe At This Time Assistive Devices: None Results & Data Vital Signs (Past 12 Hours) Vital Signs Temp Pulse Resp BP Pulse Ox O2 Del Method 09/18/23 07:44 36.7 C 70 20 96/60 L 98 Room Air
--- NOTE | 2023-09-18 16:21 | Hospitalist Progress Note ---
Date of Service September 18, 2023 Assessment & Plan (1) Abdominal pain, LLQ (left lower quadrant): (2) Pelvic mass: Plan: 33-year-old female with no significant past medical history comes because of left lower quadrant pain for 3 days Patient has been noticing slight abdominal discomfort and distention per past 1 month No fever, no nausea/vomiting. Normal bowel and bladder habits. She denies any urinary tract infection symptoms Labs reviewed; no leukocytosis. Hemoglobin of 11.9. CMP within normal limits. Urinalysis showed 3+ leukocyte esterase, 2+ bacteria Abdominal/pelvic CT with contrast: Complex mixed cystic and solid appearing 7.5 cm lesion within the midline pelvis with adjacent 6.3 cm soft tissue attenuating mass and tiny adjacent peritoneal nodules which is suspicious for an ovarian malignancy appendix is mildly dilated and demonstrates adjacent periappendiceal inflammation. Correlation should be made with physical exam findings and laboratory analysis to exclude acute appendicitis. Small amount of free pelvic fluid. Mild nonspecific urinary bladder wall thickening. Correlate with urinalysis to exclude cystitis. Patient was started on IV Zosyn for possible UTI. Admitted to [facility] with surgery, oncology and gynecology on consult CEA was 0.3 ng/ml Ca 125 pending HCG negative. Discussed with oncology; broad differential diagnosis given patient's symptoms and radiological findings. Recommended NANOSCIENCE TECHNICIAN oncology evaluation Discussed with Dr. Mary Francisco (Gynecological oncology) from [facility]. Patient accepted for transfer to [facility] Patient currently on full liquid diet. Patient to be transferred by S Full code DVT prophylaxis ambulation Please note the above document was generated using voice recognition software. It may contain grammatical, syntax or spelling errors. Any formal questions or concerns about the content, text or information contained within the body of this dictation should be directly addressed to the provider for clarification Admission and Anticipated Discharge Date Admission Date: September 17, 2023 Subjective Patient seen and examined at bedside. Comfortable; not in distress. Denies fever, chills, chest pain, shortness of breath, abdominal pain or urinary symptoms. No significant overnight events Review of Systems Review of Systems: All systems reviewed & are unremarkable except as noted in Subjective Physical Exam Physical Exam: Constitutional: Alert oriented x 3; not in distress. Respiratory: Bilateral vesicular breath sound Cardiovascular: RRR, no murmur, no edema Vessels: no JVD or carotid bruit Chest: normal inspection of chest Abdomen: Slightly distended, tenderness present in left lower quadrant. Musculoskeletal: no cyanosis or clubbing, extremities motor strength 5/5 Skin: no rashes, warm and dry normal turgor Neurologic: PERRL, EOMI, accommodation nl, no face palsy, no dysarthria CN's II- XI intact bilaterally and moves all extremities Psychiatric: A+Ox3, euthymic affect Results & Data Results & Data Vital Signs (Past 12 Hours) Vital Signs Temp Pulse Resp BP Pulse Ox O2 Del Method 09/18/23 14:14 36.6 C 70 16 115/75 100 Room Air 09/18/23 07:44 36.7 C 70 20 96/60 L 98 Room Air
--- NOTE | 2023-09-18 16:23 | Discharge Summary ---
Date of Service September 18, 2023 Admission HPI Per Admitting Provider 33-year-old female with no significant past medical history comes because of left lower quad abdominal pain going on for last few days and feeling hot and cold. Denies any fevers. No nausea /vomiting. Normal bowel and bladder movements. No chest pain or shortness of breath. No cough. No headache. No back pain. No runny nose or sore throat .Appetite is okay. Currently resting comfortably and hemodynamically stable. Past medical history none Past surgical history none Social history. No smoking. Alcohol social drinking Family history mother had oophorectomy Admission Exam Per Admitting Provider General- Not in distress Head- atraumatic Eyes- PERRL. ENT- oropharynx clear Neck- supple, Lungs- clear to auscultation no wheezing or crackles. Heart- regular rhythm; no murmur, no gallop. Abdomen- normal bowel sounds, soft, tenderness in LLQ, no distension. Extremities- no pretibial edema, no erythema seen. Neuro- alert, oriented PERRL, no facial palsy; no dysarthria; obeys commands. Principal Diagnosis Pelvic mass Discharge Exam Constitutional: Alert oriented x 3; not in distress. Respiratory: Bilateral vesicular breath sound Cardiovascular: RRR, no murmur, no edema Vessels: no JVD or carotid bruit Chest: normal inspection of chest Abdomen: Slightly distended, tenderness present in left lower quadrant. Musculoskeletal: no cyanosis or clubbing, extremities motor strength 5/5 Skin: no rashes, warm and dry normal turgor Neurologic: PERRL, EOMI, accommodation nl, no face palsy, no dysarthria CN's II- XI intact bilaterally and moves all extremities Psychiatric: A+Ox3, euthymic affect Discharge Data Allergies Allergy/AdvReac Type Severity Reaction Status Date / Time No Known Allergies Allergy Unverified 09/17/23 19:30 Consultations 09/18/23 08:00 Consult General Surgery Routine Consult Obstetrics Routine Consult Oncology Routine 09/18/23 16:21 Burn CD for patient Stat Ordered Studies 09/17/23 18:23 CT abd pelvis IV con only Stat Hospital Course (1) Abdominal pain, LLQ (left lower quadrant): (2) Pelvic mass: 33-year-old female with no significant past medical history comes because of left lower quadrant pain for 3 days Patient has been noticing slight abdominal discomfort and distention per past 1 month No fever, no nausea/vomiting. Normal bowel and bladder habits. She denies any urinary tract infection symptoms Labs reviewed; no leukocytosis. Hemoglobin of 11.9. CMP within normal limits. Urinalysis showed 3+ leukocyte esterase, 2+ bacteria Abdominal/pelvic CT with contrast: Complex mixed cystic and solid appearing 7.5 cm lesion within the midline pelvis with adjacent 6.3 cm soft tissue attenuating mass and tiny adjacent peritoneal nodules which is suspicious for an ovarian malignancy appendix is mildly dilated and demonstrates adjacent periappendiceal inflammation. Correlation should be made with physical exam findings and laboratory analysis to exclude acute appendicitis. Small amount of free pelvic fluid. Mild nonspecific urinary bladder wall thickening. Correlate with urinalysis to exclude cystitis. Patient was started on IV Zosyn for possible UTI. Admitted to [facility] with surgery, oncology and gynecology on consult CEA was 0.3 ng/ml Ca 125 pending HCG negative. Discussed with oncology; broad differential diagnosis given patient's symptoms and radiological findings. 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 Mary Francisco (Gynecological oncology) from [facility]. Patient accepted for transfer to [facility] Patient currently on full liquid diet. Patient to be transferred by BLS Full code DVT prophylaxis ambulation Please note the above document was generated using voice recognition software. It may contain grammatical, syntax or spelling errors. Any formal questions or concerns about the content, text or information contained within the body of this dictation should be directly addressed to the provider for clarification Total Time Total Time Spent Total Time Spent (In Minutes): 34 Total Time Includes: Examination of the Patient, Discharge Planning, Medication Reconciliation, Communication With Other Providers and Other Discharge Plan Discharge Items Reason For Visit: ABDOMINAL PAIN, UTI, OVARIAN MASS Follow-up/Referrals: PCP,NO [Primary Care Provider] - Medications and DC Order Prescriptions: No Action No Known Home Medications Admission Data Admit Date/Time: 09/17/23 20:45 Attending Provider: Ephraim Leonard Admit Provider: Silver Allen Primary Care Provider: PCP,NO Other Providers: Siva Hinson; Sujit Fuentes; Wolf Navarrete
--- NOTE | 2023-09-19 17:50 | Discharge Summary ---
Date of Service September 19, 2023 Admission HPI Per Admitting Provider 33-year-old female with no significant past medical history comes because of left lower quad abdominal pain going on for last few days and feeling hot and cold. Denies any fevers. No nausea /vomiting. Normal bowel and bladder movements. No chest pain or shortness of breath. No cough. No headache. No back pain. No runny nose or sore throat .Appetite is okay. Currently resting comfortably and hemodynamically stable. Past medical history none Past surgical history none Social history. No smoking. Alcohol social drinking Family history mother had oophorectomy Admission Exam Per Admitting Provider General- Not in distress Head- atraumatic Eyes- PERRL. ENT- oropharynx clear Neck- supple, Lungs- clear to auscultation no wheezing or crackles. Heart- regular rhythm; no murmur, no gallop. Abdomen- normal bowel sounds, soft, tenderness in LLQ, no distension. Extremities- no pretibial edema, no erythema seen. Neuro- alert, oriented PERRL, no facial palsy; no dysarthria; obeys commands. Principal Diagnosis Pelvic mass Discharge Exam Not examinedpatient was transferred overnight Discharge Data Allergies Allergy/AdvReac Type Severity Reaction Status Date / Time No Known Allergies Allergy Unverified 09/17/23 19:30 Consultations 09/18/23 08:00 Consult General Surgery Routine Consult Obstetrics Routine Consult Oncology Routine 09/18/23 16:21 Burn CD for patient Stat Ordered Studies 09/17/23 18:23 CT abd pelvis IV con only Stat Hospital Course (1) Abdominal pain, LLQ (left lower quadrant): (2) Pelvic mass: 33-year-old female with no significant past medical history comes because of left lower quadrant pain for 3 days Patient has been noticing slight abdominal discomfort and distention per past 1 month No fever, no nausea/vomiting. Normal bowel and bladder habits. She denies any urinary tract infection symptoms Labs reviewed; no leukocytosis. Hemoglobin of 11.9. CMP within normal limits. Urinalysis showed 3+ leukocyte esterase, 2+ bacteria Abdominal/pelvic CT with contrast: Complex mixed cystic and solid appearing 7.5 cm lesion within the midline pelvis with adjacent 6.3 cm soft tissue attenuating mass and tiny adjacent peritoneal nodules which is suspicious for an ovarian malignancy appendix is mildly dilated and demonstrates adjacent periappendiceal inflammation. Correlation should be made with physical exam findings and laboratory analysis to exclude acute appendicitis. Small amount of free pelvic fluid. Mild nonspecific urinary bladder wall thickening. Correlate with urinalysis to exclude cystitis. Patient was started on IV Zosyn for possible UTI. Admitted to [facility] with surgery, oncology and gynecology on consult CEA was 0.3 ng/ml Ca 125 pending HCG negative. Discussed with oncology; broad differential diagnosis given patient's symptoms and radiological findings. 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 Mary Francisco (Gynecological oncology) from [facility]. Patient accepted for transfer to [facility] Patient transferred by BLS Full code DVT prophylaxis ambulation Please note the above document was generated using voice recognition software. It may contain grammatical, syntax or spelling errors. Any formal questions or concerns about the content, text or information contained within the body of this dictation should be directly addressed to the provider for clarification Total Time Total Time Spent Total Time Spent (In Minutes): 10 Total Time Includes: Examination of the Patient, Discharge Planning, Medication Reconciliation, Communication With Other Providers and Other Discharge Plan Discharge Items Patient Disposition: Transfer Acute Care Hospital Reason For Visit: ABDOMINAL PAIN, UTI, OVARIAN MASS Discharge Diagnosis: Abdominal pain Pelvic mass Activity: Resume your previous activity Non-emergency contact: Primary Care Provider Call non-emergency contact if: you have any medication questions and your symptoms worsen Follow-up/Referrals: PCP,NO [Primary Care Provider] - Diet: Regular Addtl Attending Provider Instructions: 33-year-old female with no significant past medical history comes because of left lower quadrant pain for 3 days Patient has been noticing slight abdominal discomfort and distention per past 1 month No fever, no nausea/vomiting. Normal bowel and bladder habits. She denies any urinary tract infection symptoms Labs reviewed; no leukocytosis. Hemoglobin of 11.9. CMP within normal limits. Urinalysis showed 3+ leukocyte esterase, 2+ bacteria Abdominal/pelvic CT with contrast: Complex mixed cystic and solid appearing 7.5 cm lesion within the midline pelvis with adjacent 6.3 cm soft tissue attenuating mass and tiny adjacent peritoneal nodules which is suspicious for an ovarian malignancy appendix is mildly dilated and demonstrates adjacent periappendiceal inflammation. Correlation should be made with physical exam findings and laboratory analysis to exclude acute appendicitis. Small amount of free pelvic fluid. Mild nonspecific urinary bladder wall thickening. Correlate with urinalysis to exclude cystitis. Patient was started on IV Zosyn for possible UTI. Admitted to [facility] floor with surgery, oncology and gynecology on consult CEA was 0.3 ng/ml Ca 125 pending HCG negative. Discussed with oncology; broad differential diagnosis given patient's symptoms and radiological findings. 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 Mary Francisco (Gynecological oncology) from [facility]. Patient accepted for transfer to [facility] Patient currently on full liquid diet. Patient to be transferred by [facility] [employer] Provider Instructions: Current Inpatient Medications Acetaminophen (Acetaminophen 325 Mg Tab) 650 mg PO Q4H PRN PRN Reason: pain/fever Stop: 10/17/23 22:35 Piperacillin Sod/Tazobactam (Sod 4.5 gm/ Dextrose) 100 mls @ 25 mls/hr IV Q8H [facility]; Protocol Stop: 09/28/23 01:59 Last Infusion: 09/18/23 15:17 Dose: Infused Morphine Sulfate (Morphine Sulfate 2 Mg/Ml Carp) 2 mg IV Q6H PRN PRN Reason: Severe Pain (Scale 7, 8, 9,10) Stop: 10/01/23 22:35 Pending Studies at Discharge: No Stand-Alone Forms: My [facility] [employer] Skilled Items Patient informed of condition?: Yes DNR: No Discharge Level of Care: Other Communicable Disease: No Discharge Prognosis: Stable Lines: Peripheral IV Urinary Catheter: No Medications and DC Order Prescriptions: No Action No Known Home Medications Discharge Orders: Discharge Order (Routine); Ordered 09/18/23 Ordered By: Ephraim Bearden/Other Patient Handouts: UTIs Admission Data Admit Date/Time: 09/17/23 20:45 Attending Provider: Ephraim Leonard Admit Provider: Silver Allen Primary Care Provider: PCP,NO Other Providers: Siva Hinson; Sujit Fuentes; Wolf Navarrete Other Interventions: Discharge Summary Assessment (RN) Last Done: 09/19/23 00:55
== END 2023-09-19 00:55 | disposition short-term general hospital (02) | DRG 760 ==
LOC: ED 17:28 → 3E 20:45